=== PATIENT | female | born 1980 | race Caucasian/White ===

== ENCOUNTER 2018-08-31 14:20 | Emergency (ER) | payer MEDICAID ==
[2018-08-31 14:30] VITALS: Ht 165.1 cm
[2018-08-31] MEDS ORDERED: ROBAXIN500 MG PO (15:51)
[2018-08-31 16:11] VITALS: BP 139/86
== END 2018-08-31 16:14 | disposition home or self-care (01) ==
LOC: D.ER 14:20
DX: M79.671 Pain in right foot (principal); F17.200 Nicotine dependence, unspecified, uncomplicated

== ENCOUNTER 2021-02-01 15:15 | Outpatient (CLI) | payer OTHER ==
[~2021-02-01 15:15] MED LIST: MUCINEX600 MG PO; ROBAXIN500 MG PO; ZPAK PO
== END 2021-02-01 15:45 | disposition home or self-care (01) ==
LOC: D.MAMMO 15:15
PROVIDERS: ATTEND Nurse Practitioner
DX: Z12.31 Encounter for screening mammogram for malignant neoplasm of breast (principal)

== ENCOUNTER 2021-02-10 21:51 | Emergency (ER) | payer OTHER ==
[~2021-02-10] VITALS: Ht 165.1 cm; Wt 140.9 kg
[2021-02-10 22:05] VITALS: Ht 165.1 cm; Wt 140.9 kg
[2021-02-10 23:00] LABS: BASOPHILS 0.1 % (0-2); EOSINOPHILS 0.5 % (0-7); HEMATOCRIT 41.3 % (36.0-48.0); HEMOGLOBIN 14.1 g/dL (12-16); IMMATURE GRANULOCYTES 0.3 % (0-5); LYMPHOCYTE ABS# 1.88 10x3/uL (1.18-3.74); LYMPHOCYTES 10.7 % (15-50); MCH 33.7 pg (26.0-34.0); MCHC 34.1 g/dL (31.0-37.0); MCV 98.8 fL (80.0-100.0); MEAN PLATELET VOLUME 10.1 fL (7.4-10.4); MONOCYTES 6.5 % (2-11); NEUTROPHIL ABS# 14.34 10x3/uL (1.56-6.13); NEUTROPHILS 81.9 % (40-80); PLATELET COUNT 251 10x3/uL (130-400); RBC 4.18 10x6/uL (4.00-5.40); RDW 12.9 % (11.5-14.5); WBC 17.5 10x3/uL (4.8-10.8)
[2021-02-10 23:06] LABS: INR 1.08 (0.85-1.17)
[2021-02-10 23:07] LABS: APTT 33.5 SECONDS (22.8-39.4)
[2021-02-10 23:13] LABS: CALC OSMOLALITY 276 mosm/kg (275-300); CALCIUM 8.7 mg/dL (8.5-10.1); CARBON DIOXIDE 25.4 mmol/L (21.0-32.0); CHLORIDE - SERUM 101 mmol/L (98-107); GLUCOSE 126 mg/dL (74-106); POTASSIUM - SERUM 3.6 mmol/L (3.5-5.1); SODIUM 137 mmol/L (136-145); UREA NITROGEN 16 mg/dL (7-18); eGFR NON AFRICAN AMERICAN 65 mL/min (90-120)
[2021-02-10 23:32] LABS: ALBUMIN 3.8 g/dL (3.4-5.0); ALKALINE PHOSPHATASE 101 U/L (30-120); ALT (SGPT) 123 U/L (10-68); BILIRUBIN - TOTAL 0.37 mg/dL (0.2-1.3); CREATINE KINASE 173 UL (21-215); PRO BNP 42 pg/mL (0-125); PROTEIN - SERUM 7.1 g/dL (6.4-8.2)
[2021-02-10 23:36] LABS: TROPONIN-I < 0.017 ng/mL (0.000-0.060)
[2021-02-11 00:06] LABS: INFLUENZA TYPE A NEGATIVE (NEGATIVE); INFLUENZA TYPE B NEGATIVE (NEGATIVE); SARS-CoV-2 ANTIGEN NEGATIVE- SARS-COV-2 (NEGATIVE)
[2021-02-11 00:49] LABS: BILIRUBIN NEGATIVE (NEGATIVE); KETONE NEGATIVE (NEGATIVE); NITRITE NEGATIVE (NEGATIVE); UROBILINOGEN NORMAL mg/dL (< 2)
[2021-02-11] MEDS ORDERED: AZITHROMYCIN500 MG PO (00:53)
[2021-02-11] MEDS ORDERED: MEDROL DOSE PACK4 MG PO (00:53)
[2021-02-11 01:19] VITALS: BP 132/81
== END 2021-02-11 01:20 | disposition home or self-care (01) ==
LOC: D.ER 21:51
PROVIDERS: Family Medicine
DX: R50.9 Fever, unspecified (principal); R11.0 Nausea; R05 Cough; R68.89 Other general symptoms and signs; R06.02 Shortness of breath

== ENCOUNTER 2021-03-21 16:23 | Emergency (ER) | payer OTHER ==
[~2021-03-21] VITALS: Ht 165.1 cm; Wt 140.9 kg
[~2021-03-21 16:23] MED LIST changes: +AZITHROMYCIN500 MG PO; +MEDROL DOSE PACK4 MG PO
[2021-03-21 16:34] VITALS: Ht 165.1 cm; Wt 140.9 kg
[2021-03-21 17:00] VITALS: BP 136/80
[2021-03-21 17:16] LABS: BASOPHILS 0.7 % (0-2); EOSINOPHILS 0.5 % (0-7); HEMATOCRIT 39.9 % (36.0-48.0); HEMOGLOBIN 13.3 g/dL (12-16); LYMPHOCYTES 11.8 % (15-50); MCH 32.7 pg (26.0-34.0); MCHC 33.3 g/dL (31.0-37.0); MCV 98.1 fL (80.0-100.0); MEAN PLATELET VOLUME 7.8 fL (7.4-10.4); MONOCYTES 7.6 % (2-11); NEUTROPHILS 79.4 % (40-80); PLATELET COUNT 252 10x3/uL (130-400); RBC 4.07 10x6/uL (4.00-5.40); RDW 13.6 % (11.5-14.5); WBC 14.2 10x3/uL (4.8-10.8)
[2021-03-21 17:25] LABS: CALC OSMOLALITY 284 mosm/kg (275-300); CARBON DIOXIDE 27.4 mmol/L (21.0-32.0); CHLORIDE - SERUM 106 mmol/L (98-107); CREATININE - SERUM 0.8 mg/dL (0.6-1.3); GLUCOSE 89 mg/dL (74-106); POTASSIUM - SERUM 3.4 mmol/L (3.5-5.1); SODIUM 143 mmol/L (136-145); UREA NITROGEN 15 mg/dL (7-18); eGFR NON AFRICAN AMERICAN 84 mL/min (90-120)
[2021-03-21 17:32] LABS: ALBUMIN 3.8 g/dL (3.4-5.0); ALKALINE PHOSPHATASE 111 U/L (30-120); ALT (SGPT) 89 U/L (10-68); BILIRUBIN - TOTAL 0.36 mg/dL (0.2-1.3)
[2021-03-21 17:44] LABS: INFLUENZA TYPE A NEGATIVE (NEGATIVE); INFLUENZA TYPE B NEGATIVE (NEGATIVE); SARS-CoV-2 ANTIGEN NEGATIVE- SARS-COV-2 (NEGATIVE)
[2021-03-21] MEDS ORDERED: AUGMENTIN 875-11 TAB PO (17:51)
== END 2021-03-21 18:45 | disposition home or self-care (01) ==
LOC: D.ER 16:23
PROVIDERS: Family Medicine
DX: J40 Bronchitis, not specified as acute or chronic (principal); E87.6 Hypokalemia; D72.829 Elevated white blood cell count, unspecified; J32.9 Chronic sinusitis, unspecified; J06.9 Acute upper respiratory infection, unspecified; Z72.0 Tobacco use

== ENCOUNTER → 2021-04-11 14:25 | Outpatient (CLI) | payer OTHER ==
[2021-03-21 16:34] VITALS: BMI 51.6
[~2021-04-11 14:25] MED LIST changes: +AUGMENTIN 875-11 TAB PO
== END | disposition home or self-care (01) ==
LOC: D.RAD 14:25
PROVIDERS: ATTEND Family Medicine
DX: M25.562 Pain in left knee (principal)

== ENCOUNTER → 2021-04-21 08:29 | Outpatient (CLI) | payer OTHER ==
[2021-03-21 16:34] VITALS: BMI 51.6
[~2021-04-21 08:29] MED LIST changes: +KLONOPIN1 MG PO; +MOBIC7.5 MG PO; +PREDNISONE50 MG PO; +TYLENOL W/CODEI1 TAB PO; +ZOLOFT100 MG PO
== END | disposition home or self-care (01) ==
LOC: D.LAB 08:29
PROVIDERS: ATTEND Nurse Practitioner
DX: J40 Bronchitis, not specified as acute or chronic (principal)

== ENCOUNTER 2021-04-24 10:58 | Emergency (ER) | payer OTHER ==
[~2021-04-24] VITALS: Ht 165.1 cm; Wt 140.9 kg
[~2021-04-24 10:58] MED LIST changes: -KLONOPIN1 MG PO; -MOBIC7.5 MG PO; -PREDNISONE50 MG PO; -TYLENOL W/CODEI1 TAB PO; -ZOLOFT100 MG PO
[2021-04-24 11:08] VITALS: Ht 165.1 cm; Wt 140.9 kg
[2021-04-24] MEDS ORDERED: KLONOPIN1 MG PO (11:13)
[2021-04-24] MEDS ORDERED: TYLENOL W/CODEI1 TAB PO (11:13)
[2021-04-24] MEDS ORDERED: MOBIC7.5 MG PO (11:13)
[2021-04-24] MEDS ORDERED: ZOLOFT100 MG PO (11:13)
[2021-04-24] MEDS ORDERED: PREDNISONE50 MG PO (11:38)
[2021-04-24 12:04] VITALS: BP 138/87
== END 2021-04-24 12:20 | disposition home or self-care (01) ==
LOC: D.ER 10:58
DX: M25.562 Pain in left knee (principal); M23.92 Unspecified internal derangement of left knee

== ENCOUNTER → 2021-04-28 14:23 | Outpatient (CLI) | payer OTHER ==
[2021-04-24 11:08] VITALS: BMI 51.6
[~2021-04-28 14:23] MED LIST changes: +KLONOPIN1 MG PO; +MOBIC7.5 MG PO; +PREDNISONE50 MG PO; +TYLENOL W/CODEI1 TAB PO; +ZOLOFT100 MG PO
== END | disposition home or self-care (01) ==
LOC: D.MRI 14:23
PROVIDERS: ATTEND Nurse Practitioner Family
DX: S83.207A Unspecified tear of unspecified meniscus, current injury, left knee, initial encounter (principal)